=== PATIENT | male | born 1955 | race Caucasian/White ===

== ENCOUNTER 2022-08-15 09:26 | Day surgery (SDC) | payer OTHER ==
[~2022-08-15] VITALS: Ht 180.3 cm; Wt 79.1 kg
[~2022-08-15 09:26] MED LIST: ANDROGEL2.5 GM; Crestor20 MG; OXYC30ER; SIMV80; ZESTORETIC 20-121 EA
[2022-08-15] MEDS ORDERED: ESCI5 (10:06)
[2022-08-15] MEDS ORDERED: EPLE25 (10:06)
[2022-08-15] MEDS ORDERED: ERGO400 (10:06)
[2022-08-15] MEDS ORDERED: FELODIPINE ER5 M1 (10:06)
[2022-08-15] MEDS ORDERED: DEPO-TESTO200 MG/1 M (10:09)
== END 2022-08-15 12:23 | disposition home or self-care (01) ==
LOC: ORSCSDS 09:26
PROVIDERS: Internal Medicine Gastroenterology
PROC: 0DJD8ZZ Inspection of Lower Intestinal Tract, Via Natural or Artificial Opening Endoscopic (ICD-10-PCS; principal; 2022-08-15 10:45)
DX: Z12.11 Encounter for screening for malignant neoplasm of colon (principal); Z86.010 Personal history of colon polyps; K64.8 Other hemorrhoids; K57.30 Diverticulosis of large intestine without perforation or abscess without bleeding; I10 Essential (primary) hypertension; E78.5 Hyperlipidemia, unspecified; Z79.899 Other long term (current) drug therapy
CPT/HCPCS: J2704; J7120

== ENCOUNTER → 2023-04-18 | Outpatient (CLI) | payer OTHER ==
[~2023-04-18] MED LIST changes: +DEPO-TESTO200 MG/1 M; +EPLE25; +ERGO400; +ESCI5; +FELODIPINE ER5 M1
[2023-04-18 11:38] LABS: Source, Urine Clean Catch
[2023-04-18 13:13] LABS: Appearance, Urine Clear (Clear); Bilirubin, Urine Neg (Neg); Blood, Urine Neg (Neg); Glucose Qualitative, Urine Neg (Neg); Ketones, Urine 3+ (Neg); Leukocyte Esterase, Urine Neg (Neg); Nitrite, Urine Neg (Neg); Protein, Urine Neg (Neg); Urobilinogen, Urine NORM (Normal)
[2023-04-18 13:36] LABS: Color, Urine Pale Yellow (P-Yellow)
== END | disposition home or self-care (01) ==
LOC: LAB SHORT 11:30 → LAB 11:30
PROVIDERS: Internal Medicine
DX: R82.90 Unspecified abnormal findings in urine (principal)
CPT/HCPCS: 81003